=== PATIENT | male | born 1965 | race Caucasian/White ===

== ENCOUNTER → 2020-01-10 | Outpatient (CLI) | payer OTHER ==
--- NOTE | 2020-01-10 09:39 | KCIC ---
Left femur AP and lateral views: Reason for examination: Status post gamma nail placement on 07/28/2019. Follow-up exam. There is a long gamma nail present in the left femur. The nail system appears to be intact. There has been callus formation at the proximal femoral fracture site but the fracture line is still evident. No acute fracture is seen. No abnormality is seen at the hip joint or acetabulum. IMPRESSION: Long gamma nail present. Fracture line still evident in the proximal femur but callus formation is forming. Electronically signed by: Nicole Fitch MD (01/10/2020 9:36 AM) [email or web address]
== END | disposition home or self-care (01) ==
LOC: KCIC 08:15
PROVIDERS: ATTEND Physician Assistant
DX: S72.002A Fracture of unspecified part of neck of left femur, initial encounter for closed fracture (principal); M89.8X5 Other specified disorders of bone, thigh; X58.XXXA Exposure to other specified factors, initial encounter; Y93.89 Activity, other specified; Y92.89 Other specified places as the place of occurrence of the external cause; Y99.8 Other external cause status
CPT/HCPCS: 73552